=== PATIENT | male | born 1980 | race Caucasian/White ===

== ENCOUNTER 2021-12-14 23:15 | Emergency (ER) | payer BC | END 2021-12-15 00:57 | disposition home or self-care (01) | LOC: JD.ED 23:15 | DX: S80.02XA Contusion of left knee, initial encounter (principal); F17.210 Nicotine dependence, cigarettes, uncomplicated; Z88.6 Allergy status to analgesic agent; Z88.5 Allergy status to narcotic agent; Z88.2 Allergy status to sulfonamides; W10.9XXA Fall (on) (from) unspecified stairs and steps, initial encounter | CPT/HCPCS: 73564-26-LT; 73564-LT; 99283 ==

== ENCOUNTER 2021-12-22 19:06 | Emergency (ER) | payer OTHER, BC | END 2021-12-22 20:35 | disposition home or self-care (01) | LOC: JD.ED 19:06 | DX: S20.211A Contusion of right front wall of thorax, initial encounter (principal); F17.210 Nicotine dependence, cigarettes, uncomplicated; Z88.6 Allergy status to analgesic agent; Z88.5 Allergy status to narcotic agent; Z88.2 Allergy status to sulfonamides; V59.59XA Passenger in pick-up truck or van injured in collision with other motor vehicles in traffic accident, initial encounter | CPT/HCPCS: 36415; 71101-26-RT; 71101-RT; 85025; 93005; 99284 ==

== ENCOUNTER 2022-01-08 13:57 | Emergency (ER) | payer BC ==
[2022-01-08] MEDS ORDERED: Ketorolac 60 MG/2 ML SDV IM ONE (14:43)
[2022-01-08] MEDS ORDERED: Orphenadrine 100 MG Tab.ER PO ONE (14:43)
[2022-01-08] MEDS ORDERED: traMADol 50 MG Tab PO ONE (16:08)
[2022-01-08] MEDS ORDERED: predniSONE 20 MG Tab PO ONE (16:54)
== END 2022-01-08 17:13 | disposition home or self-care (01) ==
LOC: JD.ED 13:57
DX: M54.12 Radiculopathy, cervical region (principal); M79.672 Pain in left foot; F17.210 Nicotine dependence, cigarettes, uncomplicated; Z88.6 Allergy status to analgesic agent; Z88.5 Allergy status to narcotic agent; Z88.2 Allergy status to sulfonamides; Z79.899 Other long term (current) drug therapy
CPT/HCPCS: 72125; 72125-26; 73630-26-LT; 73630-LT; 96372; 99283; 99284; A9270-GY; J1885; J7512

== ENCOUNTER 2022-01-21 10:57 | Emergency (ER) | payer BC ==
[2022-01-21] MEDS ORDERED: Proparacaine 0.5% Ophth Soln 15 ML Bottle EYERT ONE (11:42)
[2022-01-21] MEDS ORDERED: Fluorescein 1 MG Ophth Strip EYERT ONE (12:34)
== END 2022-01-21 13:45 | disposition home or self-care (01) ==
LOC: JD.ED 10:57
DX: H10.31 Unspecified acute conjunctivitis, right eye (principal); F17.210 Nicotine dependence, cigarettes, uncomplicated; Z88.2 Allergy status to sulfonamides; Z88.5 Allergy status to narcotic agent
CPT/HCPCS: 99282